=== PATIENT | male | born 1965 | race Caucasian/White ===

== ENCOUNTER 2017-04-22 15:38 | Emergency (ER) | payer OTHER ==
--- NOTE | 2017-04-22 15:44 | PDOC ---
Rapid Medical Evaluation Time Seen by Provider: 04/22/17 15:42 Medical Evaluation: 04/22/17 15:46 Previously healthy 51 year old male, non-smoker, no recent travel/trauma/surgery , no testosterone use, no family/personal history hypercoaguability. Presents with non-traumatic right knee pain and swelling, now noting swelling in the rest of the lower extremity. No fevers/chills. No significant pain with weight- bearing. Mild edema/erythema right knee, trace edema distally. -U/s r/o DVT -XR -Labs including CBC, BMP, PT/INR, ESR, uric acid -Patient declines analgesia
[2017-04-22 15:46] VITALS: BP 137/86; PULSE 62; TEMP 97.8; BMI 25.1
--- NOTE | 2017-04-22 16:21 | PDOC ---
History of Present Illness - General Chief Complaint: Pain, Acute Stated Complaint: RT KNEE PAIN (YFD) Time Seen by Provider: 04/22/17 15:42 History Source: Patient Exam Limitations: No Limitations - History of Present Illness Initial Comments: 04/22/17 16:19 Patient states was walking up and down a gravelly mildly slippery held this morning without knowledge of twisting or pulling injury. However once return to his office felt some stiffness and some swelling to his right knee. States also when he stood up and had some shooting pains down to his foot that felt like "electricity ". All the symptoms spontaneous resolved. Patient has taken no medication for relief of any symptom, denies shortness of breath ,chest pain palpitations. Has had no recent travel, no recent exercise changes, no unusual activities over the weekend. No prolonged periods of sitting, has no past medical history including hypercoagulability. Exercises at the gym 2-3 times a week. Has no history of significant knee injury. 04/22/17 16:24 Occurred: reports: this morning Severity: reports: mild, moderate Pain Location: reports: lower extremity (right knee ) Modifying Factors: improves with: None Associated Symptoms (Fall): denies symptoms Past History - Travel Traveled outside of the country in the last 30 days: No Close contact w/someone who was outside of country & ill: No - Past Medical History Allergies/Adverse Reactions: Allergies Allergy/AdvReac Type Severity Reaction Status Date / Time peanut Allergy Verified 04/22/17 15:46 Home Medications: Ambulatory Orders NK [No Known Home Medication] 04/22/17 - Suicide/Smoking/Psychosocial Hx Smoking History: Never smoked Have you smoked in the past 12 months: No Information on smoking cessation initiated: No Hx Alcohol Use: No Drug/Substance Use Hx: No Review of Systems - Review of Systems Able to Perform ROS?: Yes Is the patient limited Irish proficient: Yes Constitutional: Yes: See HPI. No: Symptoms Reported HEENTM: No: Symptoms Reported Respiratory: No: Symptoms reported Musculoskeletal: Yes: Symptoms Reported, See HPI, Joint Pain, Joint Swelling, Muscle Pain Integumentary: Yes: See HPI. No: Symptoms Reported, Bruising Neurological: Yes: See HPI. No: Symptoms reported *Physical Exam - Vital Signs Last Vital Signs Temp Pulse Resp BP Pulse Ox 97.8 F 62 16 137/86 98 04/22/17 15:43 04/22/17 15:43 04/22/17 15:43 04/22/17 15:43 04/22/17 15:43 - Physical Exam General Appearance: Yes: Appropriately Dressed, Apparent Distress HEENT: positive: GAGAN, Normal ENT Inspection Neck: negative: Tender Respiratory/Chest: positive: Lungs Clear, Normal Breath Sounds Gastrointestinal/Abdominal: positive: Soft. negative: Normal Bowel Sounds Musculoskeletal: positive: Normal Inspection, Other (right knee with multiple patella, no ballottement, no reproduced tenderness along MCL or LCL or posterior fossa. Knee appears stable without pain reproduced with varus and valgus maneuvers. No laxity. Neurovascular intact distal to any without swelling , redness, or reproduced tenderness along calf.) Extremity: positive: Normal Capillary Refill, Normal Inspection, Normal Range of Motion Integumentary: positive: Normal Color Neurologic: positive: quality assurance coordinator II-XII NML intact, Fully Oriented, Alert, Normal Mood/ Affect, Normal Response, Motor Strength 5/5 Progress Note - Progress Note Progress Note: Knee strain, slight. There is no evidence of any significant pathology or DVT , patient has no risk factors or any clinical indications. Discussed probable mild knee sprain and conservative measures. Will follow-up with orthopedist if symptoms worsen or persist. *DC/Admit/Observation/Transfer Diagnosis at time of Disposition: Muscle strain of right knee Qualifiers: Encounter type: initial encounter Qualified Code(s): S86.911A - Strain of unspecified muscle(s) and tendon(s) at lower leg level, right leg, initial encounter - Discharge Dispostion Disposition: HOME Condition at time of disposition: Stable Admit: No - Referrals Referrals: Shay Cook MD [Staff Physician] - - Patient Instructions Printed Discharge Instructions: DI for Knee Sprain Additional Instructions: Rest, ice to area on and off for 15 minutes 4-6 times a day Avoid heavy lifting or exercise until pain and swelling is resolved or until further directed Keep area highly elevated to reduce swelling Use splints/Arnaldo wrap as directed Followup with orthopedist in one to 2 days if not improving, if significantly improved may wait one week for followup with orthopedist May use ibuprofen 2-200 mg tablets every 6 hours as needed for pain - Post Discharge Activity Forms/Work/School Notes: Back to Work
== END 2017-04-22 16:35 | disposition home or self-care (01) ==
LOC: JERFT 15:38
DX: S86.811A Strain of other muscle(s) and tendon(s) at lower leg level, right leg, initial encounter (principal); X50.9XXA Other and unspecified overexertion or strenuous movements or postures, initial encounter; Y93.01 Activity, walking, marching and hiking; Y92.89 Other specified places as the place of occurrence of the external cause; Y99.0 Civilian activity done for income or pay
CPT/HCPCS: 99281-25